=== PATIENT | male | born 1960 | race Caucasian/White ===

== ENCOUNTER 2017-05-17 04:57 | Emergency (ER) | payer OTHER ==
[2017-05-17] MEDS ORDERED: ACETAMINOPHEN 500 MG TABLET PO ONE (05:24)
[2017-05-17] MEDS ORDERED: NORMAL SALINE 1,000 ML IV ONE (05:31)
--- NOTE | 2017-05-17 05:35 | ERNOTE ---
Medical Problem HPI - Narrative Date of Service: 05/17/17 - General Chief Complaint: Flu Symptoms Time Seen by Provider: 05/17/17 05:23 Source: patient Exam Limitations: no limitations - Immun/Allergies/Home Medications Immunizations: IMMUNIZATION HX Immunizations Up to Date Yes History of Influenza Vaccine Yes Allergies/Adverse Reactions: Allergies No Known Drug Allergies Allergy (Verified 05/17/17 05:25) Home Medications: HOME MEDICATIONS Aspirin 81 mg PO DAILY 05/17/17 [Last Taken Unknown] Atorvastatin Calcium [Lipitor] 40 mg PO HS 05/17/17 [Last Taken Unknown] - History of Present History Narrative: 56 year old that claims that he "feels like crap" for one week. Complaints of generalized aches, and had a fever up to 102 degrees. No complaints of chest pain, shortness of breath, dysuria, or N/V/D; but has had sharp pain in the neck. The neck pain is aggravated by certain positions, but does not limit his range of motion. Infrequent use of Aleve over the last week, and has not taken any Tylenol. Seen a Garden on Wednesday and diagnosed with a viral illness. Decreased appetite, but has been drinking fluids. Hx of rectal cancer, colostomy and eventual reversal. Date (Duration): 05/17/17 Time (Timing): 05:32 Timing: constant Severity: moderate Modifying Factors - (Improves): Present: other - nothing Modifying Factors - (Worsens): Present: other - nothing Review of Systems - Review of Systems Constitutional: Present: recent illness EYE: Present: no symptoms reported ENT: Present: no symptoms reported Respiratory: Present: no symptoms reported Cardiology: Present: no symptoms reported Gastrointestinal/Abdominal: Present: no symptoms reported Genitourinary: Present: no symptoms reported Musculoskeletal: Present: no symptoms reported Skin: Present: no symptoms reported Neurological: Present: no symptoms reported Endocrine: Present: no symptoms reported Hematologic/Lymphatic: Present: no symptoms reported Psych: Present: no symptoms reported - Patient's Past Medical History Patient History - Medical: No pertinent hx Patient History - Cardiac/Respiratory: Hyperlipidemia Patient History - Cancer: Rectal Patient History - Surgical Procedures: Colon Resection Patient History - Other: None - Social History Psych History: No pertinent hx Smoking Status: Former smoker Do you dip or chew tobacco: No Alcohol Use: occasionally Drug Use: none - Immunizations Immunizations Up to Date: Yes History of Influenza Vaccine: Yes Physical Exam - Physical Exam General Appearance: Present: no apparent distress Head Exam: Present: normal inspection Eye Exam: Normal inspection: bilateral Ears, Nose, Throat: Present: normal ENT inspection Neck: Present: supple, full range of motion Respiratory: Present: no respiratory distress Cardiovascular/Chest: Present: regular rate, rhythm Gastrointestinal/Abdominal: Present: nontender Back Exam: Present: normal inspection Extremity Exam: Present: normal inspection Neurological Exam: Present: alert, oriented, normal mood/affect Skin Exam: Present: normal color ED Progress - Results and Orders Patient's Lab Results:: I have reviewed the patient's lab results. - Vital Signs Patient's Vital Signs:: I have reviewed the patient's vital signs. Vital Signs: Vital Signs 05/17/17 05/17/17 05:05 05:16 Temperature 38.6 C H 38.6 C H Pulse Rate 95 95 Respiratory 24 H 24 H Rate Blood Pressure 132/86 132/86 O2 Sat by Pulse 96 96 Oximetry - EKG EKG: NSR EKG read: Interp. by me EKG Comments: rate 85, LAD - X-Ray X-Ray #1 X-Ray: chest Interpretation: Interp. by me X-ray Comments: NAD - Progress/Reassessment Chief Complaint: Flu Symptoms Progress:: Improved Progress Note-Subjective: 05/17/17 07:11 Appears much more content no longer having tremors. Departure Clinical Impression: Viral syndrome - Departure Disposition: Home self-care Condition: Good Instructions: Influenza, Adult, [id number] Language: Nepalese Additional Instructions: You can take 650 mg of Tylenol every four hours as needed for fevers. Follow up with your physician as needed in the next 48 hours.
[2017-05-17 05:41] LABS: Hematocrit 35.4 % (42.0-52.0); Hemoglobin 12.5 gm/dL (13.5-18.0); Mean Cell Volume 81.4 fl (78-100); Mean Corpuscular Hemoglobin 28.7 pg (27-31); Mean Corpuscular Hgb Conc 35.3 g/dl (32-36); Mean Platelet Volume 9.3 fl (6.0-9.5); Platelet Count 245 K/mm3 (150-450); Red Blood Count 4.35 M/mm3 (4.7-6.0); Red Cell Distribution Width 13.8 % (11.5-14.0); White Blood Count 10.4 K/mm3 (4.0-10.5)
[2017-05-17 05:56] LABS: Urine Bilirubin Negative (NEGATIVE); Urine Ketone 50 mg/dL (NEGATIVE); Urine Nitrite Negative (NEGATIVE); Urine Protein 15 mg/dL (NEGATIVE); Urine Specific Gravity 1.015 SP.GR. (1.005-1.030); Urine Urobilinogen Normal (NORMAL)
[2017-05-17 05:59] LABS: Anion Gap 15.7 mmol/L (6.8-13.8); BUN/Creatinine Ratio 13.5 (9.0-21.6); Blood Urea Nitrogen 13 mg/dL (6-23); Calcium * 8.5 mg/dL (7.9-10.9); Carbon Dioxide 23.8 mmol/L (24-32.6); Chloride 94 mmol/L (97-106); Glucose * 111 mg/dL (70-110); Potassium 3.5 mmol/L (3.4-4.6); Sodium 130 mmol/L (132-142)
[2017-05-17 06:06] LABS: Urine Appearance Clear; Urine Bacteria 1+; Urine Blood 5 /ul (NEGATIVE); Urine Color Yellow; Urine RBC None Seen /hpf (0-5); Urine WBC None Seen /hpf (0-5)
[2017-05-17 06:07] LABS: Troponin I Less than 0.017 ng/ml (0.00-0.10)
[2017-05-17 06:07] LABS: Urine Amorphous Sediment Few - 1+ (NONE-FEW)
[2017-05-17 06:10] LABS: Total Cells Counted 100
[2017-05-17 06:13] LABS: Atypical (Reactive) Lymph 3 % (0-2); Immature Granulocyte 3 (0-1); Lymphocyte 21 % (20-51); Monocyte 13 % (0-9); Neutrophil 60 % (42-75); Neutrophil # 6.2 K/mm3 (1.3-6.0)
[2017-05-17 06:16] LABS: Platelet Estimate Normal (NORMAL); RBC Morphology Normal (NORMAL)
[2017-05-17] MEDS ORDERED: KETOROLAC TROMETHAMINE 30 MG/ML VIAL IV ONE (07:11)
[2017-05-17] MEDS ORDERED: KETOROLAC TROMETHAMINE 30 MG/ML VIAL ONE (07:27)
[2017-05-17 07:32] VITALS: BP 144/96
== END 2017-05-17 07:50 | disposition home or self-care (01) ==
LOC: ER 04:57
DX: Z87.891 Personal history of nicotine dependence; Z85.048 Personal history of other malignant neoplasm of rectum, rectosigmoid junction, and anus; B34.9 Viral infection, unspecified; E78.5 Hyperlipidemia, unspecified